=== PATIENT | female | born 1985 | race Caucasian/White ===

== ENCOUNTER 2019-02-26 13:58 | Emergency (ER) | payer MEDICAID ==
[~2019-02-26] VITALS: Ht 162.6 cm; Wt 54.4 kg
[2019-02-26 15:28] VITALS: BP 156/96
== END 2019-02-26 15:28 | disposition home or self-care (01) ==
LOC: M.ERS 13:58
DX: Z02.89 Encounter for other administrative examinations (principal)

== ENCOUNTER 2020-05-20 21:29 | Inpatient (IN) | payer MEDICARE, MEDICAID ==
[~2020-05-20] VITALS: Ht 160 cm; Wt 64.0 kg
[2020-05-20 21:35] VITALS: BP 126/77
[2020-05-20] MEDS ORDERED: VISTARIL50 MG PO (21:41)
[2020-05-20] MEDS ORDERED: ABILIFY10 MG PO (21:42)
[2020-05-20 22:08] LABS: ABSOLUTE BASOPHILS 0.1 thou/uL (0.0-0.2); ABSOLUTE EOSINOPHILS 0.4 thou/uL (0.0-0.7); ABSOLUTE LYMPHOCYTES 2.8 thou/uL (0.8-5.3); BASOPHILS 0.8 %; EOSINOPHILS 4.5 %; HEMATOCRIT 38.8 % (37.0-47.0); HEMOGLOBIN 13.3 gm/dL (12.0-15.0); LYMPHOCYTES 34.2 %; MCH 32.3 pg (26.0-34.0); MCHC 34.4 g/dL (28.0-37.0); MCV 93.9 fL (80.0-100.0); MONOCYTES 11.8 %; MPV 7.7 fl. (7.2-11.1); NUCLEATED RBCS 0 /100WBC; PLATELET COUNT* 327 thou/uL (150-400); POLYS 48.7 %; RBC 4.13 mil/uL (4.20-5.00); RDW-CV 12.7 % (10.5-14.5); WBC 8.2 thou/uL (4.0-11.0)
[2020-05-20 22:11] LABS: BE -2.8 mmol/L (-2 to +3)
[2020-05-20 22:14] LABS: PO2 VENOUS 229.6 mmHg (35.0-45.0)
[2020-05-20 22:18] LABS: INR 1.1; PROTIME 11.8 Seconds (9.20-11.50)
[2020-05-20 22:20] LABS: ACETAMINOPHEN < 2 ug/mL (10-30); ALCOHOL < 10 mg/dL (<10); SALICYLATE < 2.8 mg/dL (2.8-20.0)
[2020-05-20 23:34] LABS: CALCIUM 8.6 mg/dL (8.5-10.1); CREATININE 0.8 mg/dL (0.6-1.3); POTASSIUM 3.3 mmol/L (3.5-5.1)
[2020-05-20 23:39] LABS: ALBUMIN 3.5 g/dL (3.4-5.0); MAGNESIUM 2.1 mg/dL (1.8-2.4); TOTAL BILIRUBIN 0.4 mg/dL (<0.1-1.0)
[2020-05-21] VITALS (25 sets, daily range): BP systolic 93–124; BP diastolic 38–69
[2020-05-21 00:17] LABS: URINE BILIRUBIN NEGATIVE (Negative); URINE BLOOD NEGATIVE (Negative); URINE CLARITY CLEAR; URINE COLOR YELLOW; URINE GLUCOSE-RANDOM NEGATIVE (Negative); URINE KETONES NEGATIVE (Negative); URINE LEUKOCYTES-REFLEX NEGATIVE (Negative); URINE NITRITE-REFLEX NEGATIVE (Negative); URINE PROTEIN NEGATIVE (Negative); URINE SPECIFIC GRAVITY >= 1.030 (1.005-1.030); URINE UROBILINOGEN 0.2 E.U./dl (0.2-1.0)
[2020-05-21 00:23] LABS: AMP/METHAMP POSITIVE (Negative); BARBITURATES Negative (Negative); BENZODIAZEPINES Negative (Negative); COCAINE Negative (Negative); METHADONE Negative (Negative); OPIATES Negative (Negative); PCP Negative (Negative); THC POSITIVE (Negative)
--- NOTE | 2020-05-21 09:50 | EKG ---
[place] [address] ELECTROCARDIOGRAM REPORT Name: ANNETTE JIMENES Room: [address] IN ..#: [id number] Admission: 05/20/20 Attend Phys: Praveen oBo Discharge: Date of : 85 Date of Service: 05/20/202209 Report #: [id number] THIS REPORT FOR: //name// [facility] ED Test Date: 2020-05-20 Test Time: 22:10:35 Pat Name: ANNETTE JIMENES Department: Room: [facility] Gender: F Elderly Sitter: TB : 1985 Requested By: Lesly Busch Order Number: [id number] MD: Mitesh Rapp Measurements Intervals Cranks Rate: 88 P: 73 OK: 147 QRS: 64 QRSD: 79 T: 24 QT: 350 QTc: 424 Interpretive Statements Sinus rhythm Probable septal infarct, old No previous ECG available for comparison Electronically Signed On 05-21-2020 9:50:29 CDT by Mitesh Rapp [email or web address] <ELECTRONICALLY SIGNED> By: Mitesh Rapp MD, [facility] 05/21/20 0950 09 09 Mitesh Rapp MD, [facility] /EPI
[2020-05-22] VITALS (16 sets, daily range): BP systolic 95–124; BP diastolic 51–105
[2020-05-22 04:10] LABS: CALCIUM 8.6 mg/dL (8.5-10.1); CREATININE 0.9 mg/dL (0.6-1.3); HEMOGLOBIN 11.6 gm/dL (12.0-15.0); MCHC 33.5 g/dL (28.0-37.0); MPV 8.1 fl. (7.2-11.1); POTASSIUM 3.7 mmol/L (3.5-5.1); WBC 5.8 thou/uL (4.0-11.0)
[2020-05-22 04:30] LABS: HEMATOCRIT 34.6 % (37.0-47.0); MCH 31.8 pg (26.0-34.0); MCV 95.1 fL (80.0-100.0); RBC 3.63 mil/uL (4.20-5.00); RDW-CV 12.9 % (10.5-14.5)
[2020-05-23 00:03] VITALS: BP 110/64
[2020-05-23 04:13] VITALS: BP 121/76
[2020-05-23 08:00] VITALS: BP 109/61
[2020-05-23 11:27] VITALS: BP 109/69
[2020-05-23 15:43] VITALS: BP 124/70
[2020-05-23 16:36] VITALS: BP 124/70
== END 2020-05-23 19:00 | DRG 917 ==
LOC: M.ERS 21:29 → M.ICU 23:08 → M.TBA-ER 23:08 → M.2W 23:08 → M.ICU 05-21 00:30 → M.2W 05-22 10:30
PROVIDERS: Emergency Medicine; Family Medicine; ADMIT Internal Medicine; ATTEND Internal Medicine
DX: T50.992A Poisoning by other drugs, medicaments and biological substances, intentional self-harm, initial encounter (principal); G92 Toxic encephalopathy; F19.20 Other psychoactive substance dependence, uncomplicated; R45.851 Suicidal ideations; F31.9 Bipolar disorder, unspecified; F41.9 Anxiety disorder, unspecified; Z20.822 Contact with and (suspected) exposure to COVID-19; I95.2 Hypotension due to drugs; Z79.899 Other long term (current) drug therapy; Z88.5 Allergy status to narcotic agent; Y92.89 Other specified places as the place of occurrence of the external cause